=== PATIENT | female | born 1965 | race African-American/Black ===

== ENCOUNTER 2025-07-11 10:00 | Emergency (ER) | payer BC, OTHER ==
[2025-07-11] MEDS ORDERED: Naproxen 500 MG TAB ONE (10:30)
[2025-07-11 10:44] LABS: Glucose, Urine (Dipstick) Negative (Negative); Leukocyte Negative (Negative); Protein, Urine (Dipstick) Negative (Neg-Trace); Specific Gravity, Urine 1.025 (1.005-1.030)
[2025-07-11 10:49] LABS: Bacteria/HPF 2+ HPF (None Seen); CAUTI Indications for Culture Pelvic or flank pain; RBC/HPF 0-3 HPF (0-3); WBC/HPF 0-3 HPF (0-3)
[2025-07-11 10:51] LABS: Urine Culture Reflex No No
== END 2025-07-11 11:26 | disposition home or self-care (01) ==
LOC: NAV ERS 10:00
DX: S39.012A Strain of muscle, fascia and tendon of lower back, initial encounter (principal); X58.XXXA Exposure to other specified factors, initial encounter
CPT/HCPCS: 81001; 87086; 99283